=== PATIENT | female | born 1955 | race African-American/Black ===

== ENCOUNTER 2017-06-01 21:30 | Emergency (ER) | payer OTHER ==
[~2017-06-01] VITALS: Ht 124.5 cm; Wt 68.3 kg
[2017-06-01] MEDS ORDERED: ACID CONTROLLER20 MG PO (21:51)
[2017-06-01] MEDS ORDERED: ACTOS15 MG PO (21:51)
[2017-06-01] MEDS ORDERED: JANUVIA100 MG PO (21:52)
[2017-06-01] MEDS ORDERED: ERGOCALCIF50000 UNIT PO (21:52)
[2017-06-01] MEDS ORDERED: METFORMIN HCL500 M4 PO (21:52)
[2017-06-01] MEDS ORDERED: ZOCOR10 MG PO (21:52)
[2017-06-01] MEDS ORDERED: PRINIVIL20 MG PO (21:53)
[2017-06-01] MEDS ORDERED: OXANDRIN10 MG PO (21:53)
[2017-06-01] MEDS ORDERED: DITROPAN5 MG PO (21:54)
[2017-06-01 22:06] LABS: MCH 29.2 PG (29.0-34.0); MCV 91.5 FL (83-99); MEAN PLAT.VOLUME 8.9 uM^3 (9.5-12.4); PLATELET COUNT 340 K/uL (156-360); RBC DIS.WIDTH-CV 13.5 % (11.8-14.6); RBC DIS.WIDTH-SD 45.9 % (39-53); RED BLOOD COUNT 4.48 M/uL (3.80-5.20); WHITE BLOOD COUNT 5.9 K/uL (4.1-10.2)
[2017-06-01 22:16] LABS: CHLORIDE 108 mEq/L (99-109)
[2017-06-01 22:17] LABS: POTASSIUM 3.8 mEq/L (3.7-5.4); SODIUM 140 mEq/L (136-147)
[2017-06-01 22:19] LABS: GLUCOSE 98 mg/dL (70-99)
[2017-06-01 22:20] LABS: ANION GAP 8 MEQ/L (2-14)
[2017-06-01 22:21] LABS: TOTAL BILIRUBIN 0.4 mg/dL (0.0-1.0)
[2017-06-01 22:22] LABS: ALKALINE PHOSPHATASE 79 IU/L (3-129); GFR ESTIMATE (CALCULATED) > 59 mL/min/
[2017-06-01 22:24] LABS: UREA NITROGEN (BUN) 9 mg/dL (9-23)
[2017-06-01 22:26] LABS: LIPASE 46 U/L (1.0-51.0)
[2017-06-01 23:33] LABS: ADD MIUA? YES; BILIRUBIN NEGATIVE; BLOOD SMALL; COLOR YELLOW ((YELLOW)); GLUCOSE (STRIP) NEGATIVE; KETONES NEGATIVE; LEUKOCYTES LARGE; NITRITE NEGATIVE; PROTEIN (STRIP) 30; SPECIFIC GRAVITY 1.024 (1.000-1.030)
[2017-06-01 23:38] LABS: BACTERIA RARE /HPF; EPITHELIAL CELLS 1+ /HPF; MUCUS TRACE /LPF; UCUL ADDED? YES; WHITE BLOOD CELLS 40-50 /HPF (0-5)
[2017-06-02] MEDS ORDERED: KEFLEX500 MG PO (00:02)
[2017-06-02] MEDS ORDERED: MOTRIN600 MG PO (00:04)
[2017-06-02 00:30] VITALS: BP 136/79
== END 2017-06-02 00:41 | disposition home or self-care (01) ==
LOC: EME 21:30
PROVIDERS: Nurse Practitioner Family
DX: R10.31 Right lower quadrant pain (principal); N39.0 Urinary tract infection, site not specified; E11.9 Type 2 diabetes mellitus without complications; I10 Essential (primary) hypertension; K21.9 Gastro-esophageal reflux disease without esophagitis; Z79.84 Long term (current) use of oral hypoglycemic drugs; F17.200 Nicotine dependence, unspecified, uncomplicated; E78.5 Hyperlipidemia, unspecified
CPT/HCPCS: 74177; 80053; 81003; 83690; 85027; 87086; 99281; 99285; J1885; J2270; J2405; J7030